=== PATIENT | female | born 1970 ===

== ENCOUNTER → 2018-12-21 21:45 | Outpatient (REF) | payer OTHER, SELFPAY ==
[2018-12-21 23:25] LABS: Thyroid Stimulating Hormone 1.37 uIU/mL (0.47-4.68)
[2018-12-23 14:30] LABS: Anti Thyroglobulin Antibody < 1 IU/mL (< 2); Thyroid Peroxidase Antibodies 4 IU/mL (< 9)
== END ==
LOC: LAB 21:45
PROVIDERS: Visit Provider Family Medicine
DX: E04.1 Nontoxic single thyroid nodule (principal); F41.1 Generalized anxiety disorder; G47.00 Insomnia, unspecified
CPT/HCPCS: 36415; 84439; 84443; 86376; 86800